=== PATIENT | male | born 2000 | race Caucasian/White ===

== ENCOUNTER → 2025-04-20 | Outpatient (CLI) | payer OTHER ==
--- NOTE | 2025-04-20 17:23 | MR ---
EXAMINATION TYPE: MR angio head wo con DATE OF EXAM: 04/20/2025 5:01 PM COMPARISON: None. 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 IV Contrast: mL (None, if empty) FINDINGS: Vertebral arteries: The vertebral arteries are patent. Vertebral arteries are: Codominant. Basilar artery: The basilar artery is intact. The basilar artery bifurcation is normal. Internal Carotid arteries: The cervical, petrous, cavernous and supraclinoid segments are normal. MANN: Patent with no evidence of aneurysm. ACOM: Present without evidence of aneurysm. MCA: Patent with no evidence of aneurysm. GLOVE PARTS CUTTER: Patent with no evidence of aneurysm. PCOM: Hypoplastic bilaterally. IMPRESSION: No evidence of aneurysm or significant stenosis. [facility], , 04/20/2025 5:20 PM
--- NOTE | 2025-04-20 18:30 | MR ---
EXAMINATION TYPE: MR brain wo/w con DATE OF EXAM: 04/20/2025 5:26 PM COMPARISON: 04/20/2025.. CLINICAL INDICATION: Male, 24 years old with history of Z82.3; PHH, Seizure January 2025, Family hx ane urysm TECHNIQUE: Multi planar, multi sequence imaging was performed through the brain including: T1, T2, In version recovery, susceptibility weighted imaging and gradient echo imaging and Diffusion weighted im aging. The patient was then given intravenous contrast and multi planar, T1 fat-saturation images wer e obtained. IV Contrast: 7.5 mL Gadobutrol FINDINGS: The felder-white junctions, ventricular system, basal cisterns appear unremarkable. Diffusion-weighted imaging shows no evidence of restricted diffusion to suggest acute/subacute infarct. Intracranial ar terial flow voids are maintained. Midline structures show no abnormality. The susceptibility weighted images do not reveal any evidence for micro-hemorrhage. After administration of gadolinium, no abnor mal enhancement is seen. The bone marrow signal is within normal limits. Paranasal sinuses and mastoid air cells: Moderate scattered paranasal sinus disease. Visualized orbits: Orbital contents are intact. IMPRESSION: 1. No evidence of intracranial mass, acute/subacute infarct, or abnormal enhancement. 2. Moderate paranasal sinus disease. [facility], , 04/20/2025 6:28 PM
== END | disposition home or self-care (01) ==
LOC: RADMRIMAIN 16:02
PROVIDERS: ATTEND Psychiatry & Neurology Neurology
DX: F44.5 Conversion disorder with seizures or convulsions (principal); J34.89 Other specified disorders of nose and nasal sinuses; Z82.3 Family history of stroke
CPT/HCPCS: 70544; 70553; A9585